=== PATIENT | female | born 1975 | race Two or more races ===

== ENCOUNTER 2023-01-15 23:39 | Emergency (ER) | payer SELFPAY ==
[~2023-01-15] VITALS: Ht 152.4 cm; Wt 51.8 kg
[2023-01-16 00:08] VITALS: BP 159/95; PULSE 95; RESP 18; TEMP 98
[2023-01-16] MEDS ORDERED: HYDROcodone-ACET 10/325MG TAB PO ONE (01:15)
[2023-01-16] MEDS ORDERED: ONDANSETRON ODT 4 MG TAB PO ONE (01:15)
[2023-01-16] MEDS ORDERED: AMOX875T4 PO (02:13)
[2023-01-16] MEDS ORDERED: ACE3T PO (02:13)
[2023-01-16 02:15] VITALS: O2SAT 100
== END 2023-01-16 03:25 | disposition home or self-care (01) ==
LOC: EDBD 23:39 → ER 23:43 → EEVIPCON 23:43 → ER 01-16 03:25
DX: S02.2XXA Fracture of nasal bones, initial encounter for closed fracture (principal); S40.021A Contusion of right upper arm, initial encounter; R51.9 Headache, unspecified; Z98.51 Tubal ligation status; Y04.2XXA Assault by strike against or bumped into by another person, initial encounter; Y93.89 Activity, other specified; Y92.89 Other specified places as the place of occurrence of the external cause; Y99.8 Other external cause status
CPT/HCPCS: 70450; 70486; 71250; 72125; 74176; 99284; Q0162